=== PATIENT | female | born 2005 | race Caucasian/White ===

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

== ENCOUNTER 2024-11-18 08:02 | Emergency (ER) | payer OTHER, SELFPAY ==
[2024-11-18 08:15] VITALS: BP 147/98; PULSE 105; RESP 16; TEMP 36.5; O2SAT 100
--- NOTE | 2024-11-18 08:37 | ED.EXTPRO ---
HPI - Extremity Problem General Chief complaint: Extremity Problem,Nontraumatic Stated complaint: INJURED L LEG Time Seen by Provider: 11/18/24 08:15 Source: patient and RN notes reviewed Mode of arrival: ambulatory Limitations: no limitations History of Present Illness HPI Narrative: [id number] female presents Express Care with grade mother complaining of left calf/behind the knee pain for approximately 3 weeks. Patient says the pain is gotten a lot worse over the last 4 days. Patient says she initially was running from a snake 3 weeks ago blue she injured it when she was running. Patient says she initially had pain at the lower calf since then the pain has migrated more higher to the upper calf and behind her left knee. Patient denies any chest pain or shortness of breath, numbness, tingling, leg swelling. Patient also states she has been traveling a lot lately and driving cars for up to 16 hours at a time. Patient also takes control. Patient denies any recent surgeries or any history of blood clots. Patient has been trying [id number] pain medication without relief. Related Data Home Medications ?Medication ?Instructions ?Recorded ?Confirmed ?Last Taken ?Type drospirenone 3 mg-ethinyl tablet 11/18/24 Unknown History estradiol 0.02 mg tablet ergocalciferol (vitamin D2) 1,250 11/18/24 Unknown History mcg (50,000 unit) capsule metformin 500 mg tablet,extended mg PO 11/18/24 Unknown History release 24 hr Allergies Allergy/AdvReac Type Severity Reaction Status Date / Time No Known Allergies Allergy Verified 11/18/24 08:09 Review of Systems Review of Systems: CONSTITUTIONAL: Denies fever, chills, or sweats. EYES: Denies visual changes, redness, or discharge. ENT: Denies rhinorrhea, congestion, sore throat, or otalgia. CARDIOVASCULAR: Denies chest pain, palpitations, or edema. RESPIRATORY: Denies cough or dyspnea. GASTROINTESTINAL: Denies abdominal pain, nausea, vomiting, or diarrhea. GENITOURINARY: Denies dysuria or hematuria. SKIN: Denies rash or itching. MUSCULOSKELETAL: Denies back pain, joint pain, or myalgia. Positive for leg pain. NEUROLOGIC: Denies headache, numbness, or weakness. PSYCHIATRIC: Denies anxiety or depression. All other systems reviewed are negative, except as documented in HPI. PMFSH Comments At the time of my signature, I reviewed and agree with the nursing past medical, surgical, social, and family history. There is no relevant family history pertinent to the patient complaint. Exam Narrative: GENERAL: This is a well-nourished, well-developed adult, in no apparent distress. They are non ill-appearing, nontoxic appearing. HEAD: normocephalic, atraumatic. EYES: Sclera clear/white. Conjunctiva normal. Vision is grossly intact. Extraocular movements intact EARS: External ears normal, Hearing grossly intact. NOSE: External nose normal THROAT: Mucous membranes moist, NECK: Neck supple, CARDIOVASCULAR: Regular rate and rhythm RESPIRATORY: Respiratory rate normal, respiratory effort nonlabored, no respiratory distress SKIN: warm, Dry, intact with no suspicious lesions or rash, good texture and turgor. NEURO: awake, alert, and oriented to person, place and time. There were no obvious focal neurologic abnormalities. EXTREMITIES: Left lower extremity: Tenderness to palpation behind the left knee in the upper calf. No palpable cord. Tender through full range of motion of the knee. Capillary refill less than 2 seconds. Left Pedal pulse 2 +and palpable. Neurovascular status intact distal injury. No obvious swelling, injury, deformity, bruising, or redness. Course Course Emergency Course: Portions of this record may have been created with voice recognition software Level of Care: Express Care Visit Vital Signs Vital signs: Vital Signs Temperature 97.7 F 11/18/24 08:15 Pulse Rate 105 H 11/18/24 08:15 Respiratory Rate 16 11/18/24 08:15 Blood Pressure 147/98 H 11/18/24 08:15 Pulse Oximetry 100 11/18/24 08:15 Temperature 97.7 F 11/18/24 08:15 Pulse Rate 105 H 11/18/24 08:15 Respiratory Rate 16 11/18/24 08:15 Blood Pressure 147/98 H 11/18/24 08:15 Pulse Oximetry 100 11/18/24 08:15 Reviewed Transfer Transfered to: [facility] Transportation: Other (Private vehicle) Transfer rationale: Patient required higher level care, patient required ultrasound imaging, rule out deep vein thrombosis. Accepting physician: Dr. Navarrete MDM - Extremity (Nontraumatic) MDM Narrative Medical decision making narrative: Wells score of 1 cannot exclude DVT due to patient's recent injury, be on control, and prolonged traveling. Given patient's symptoms, it is recommend the patient seek a higher level care and proceed immediately to the emergency department. Patient is agreeable about [facility]. Called over to [facility] and spoke with Dr. Navarrete who is aware of this patient and accepted this patient for transfer. Patient advised to remain NPO and proceed immediately to the ER. Patient's grandmother will take patient via private vehicle. Differential Diagnosis Differential diagnosis: Likely other (Muscle strain, DVT, arthritis, tendinitis) Critical Care Time Critical Care Time Critical Care Time: No Discharge Plan Discharge Clinical Impression: Pain of left calf Patient Disposition: Acute Care Hospital Condition: Stable Patient Language: Syriac Prescriptions: No Action ergocalciferol (vitamin D2) 1,250 mcg (50,000 unit) capsule metformin 500 mg tablet extended release 24 hr PO drospirenone-ethinyl estradiol 3-0.02 mg tablet Eliquis DVT-PE Treat 30D Start 5 mg (74 tabs) tablets,dose pack See Rx Instructions .ROUTE .COMPLEX Qty: 74 0RF Rx Instructions: orally per package directions Follow-up/Referrals: Jennifer Stewart [employer] [Primary Care Provider] - Time of Disposition: 08:43
== END 2024-11-18 08:39 | disposition short-term general hospital (02) ==
PROVIDERS: PCP Nurse Practitioner
DX: M79.662 Pain in left lower leg (principal)
CPT/HCPCS: 99212; G0463

== ENCOUNTER 2024-11-18 09:00 | Emergency (ER) | payer OTHER, SELFPAY ==
--- NOTE | ~2024-11-18 | CT_ITS ---
Clinical Indication: DVT, tachycardia, pulmonary embolus CT Scan of the Chest with Contrast: Technique: Contiguous sections were acquired throughout the chest after intravenous administration of 100 cc of Omnipaque 350. Dose reduction technique was used on this scan by utilizing automated expos ure control and iterative reconstruction technique. The dose-length product (DLP) was 414.89 mGy-cm. Findings: There is no evidence of any significant mediastinal, hilar or axillary lymphadenopathy. There is no f illing defect in the pulmonary arterial tree to suggest pulmonary embolus. There is no evidence of ao rtic dissection or aneurysm. There is no evidence of pleural or pericardial effusion. There are peripheral pulmonary emboli and medial segmental and subsegmental branches in the left lowe r lobe. No large central pulmonary embolus. Images through the upper abdomen reveal diffuse hepatic steatosis. Impression: Small pulmonary emboli in the medial segmental and subsegmental branches in the left lower lobe. No l arge central pulmonary embolus. Diffuse hepatic steatosis. Clear lungs. Reviewed, dictated and finalized at location . Impression: Small pulmonary emboli in the medial segmental and subsegmental branches in the left lower lobe. No large central pulmonary embolus. Diffuse hepatic steatosis. Clear lungs.
--- NOTE | ~2024-11-18 | US_ITS ---
EXAMINATION:US venous doppler LE LT INDICATION:Calf pain. Recent travel. TECHNIQUE: Multiple grayscale, color flow and Doppler images of the left lower extremity deep venous systems were obtained and reviewed. COMPARISON:No prior studies for comparison. FINDINGS: There is deep venous thrombosis involving the left femoral, popliteal, posterior tibial, pe roneal veins and gastrocnemius veins IMPRESSION: 1: Extensive deep venous thrombosis of the left lower extremity veins.. Reviewed, dictated and finalized at location B.
--- NOTE | ~2024-11-18 | XR_ITS ---
Left Knee Technique: AP, lateral, and oblique views were obtained. Clinical History: Pain Findings: No fracture or dislocation is seen. Osseous alignment is anatomic. Joint spaces are preserv ed without degenerative or erosive change. Soft tissues are unremarkable. No joint effusion is seen. Impression: Unremarkable left knee radiographs. Reviewed, dictated and finalized at location . Impression: Unremarkable left knee radiographs.
[2024-11-18 09:04] VITALS: BP 155/108; PULSE 124; RESP 18; TEMP 36.8; O2SAT 100
--- NOTE | 2024-11-18 09:12 | ED.EXTPRO ---
HPI - Extremity Problem General Chief complaint: Extremity Problem,Nontraumatic Stated complaint: L LEG PAIN Time Seen by Provider: 11/18/24 09:03 Source: patient Mode of arrival: ambulatory Limitations: no limitations History of Present Illness HPI Narrative: Patient is a 19-year-old female who presents the ED with report of left calf and posterior knee pain. Patient reports having pain over the last couple weeks. States pain was initially in her left calf. Notes that she recently traveled several states away 3 weeks ago and was running from a snake on the ground in thought she may have pulled her calf muscle. She states the pain has since radiated behind her left knee. Was seen in urgent care today and referred to the ED for rule out of DVT. Patient is also on estrogen control. She denies previous history or family history of blood clots. Denies chest pain or shortness of breath. Denies numbness. Related Data Home Medications ?Medication ?Instructions ?Recorded ?Confirmed ?Last Taken ?Type drospirenone 3 mg-ethinyl tablet 11/18/24 Unknown History estradiol 0.02 mg tablet ergocalciferol (vitamin D2) 1,250 11/18/24 Unknown History mcg (50,000 unit) capsule metformin 500 mg tablet,extended mg PO 11/18/24 Unknown History release 24 hr Allergies Allergy/AdvReac Type Severity Reaction Status Date / Time No Known Allergies Allergy Verified 11/18/24 08:09 Review of Systems Review of Systems: All systems reviewed & are unremarkable except as noted in HPI. All systems reviewed & are unremarkable except as noted in HPI and below Exam Narrative: GENERAL: Well appearing, well-nourished, non-toxic, in no acute distress. HEAD: Normocephalic, atraumatic. RESPIRATORY: Airway patent, respirations nonlabored. CARDIOVASCULAR: Regular rate and rhythm. Pedal pulses are intact and easily palpable. MUSCULOSKELETAL: Moves all extremities. No gross deformities. Full range of motion of left lower extremity. No fusiform swelling of left lower extremity. Tenderness to palpation in left proximal calf popliteal region with mild fullness in this region. No warmth or erythema. SKIN: Warm, dry, normal color. NEURO: A&O X3. Speech clear. Steady gait. No ataxic movements. PSYCHIATRIC: Appropriate mood and affect. Normal interaction. Course Vital Signs Vital signs: Vital Signs Temperature 98.2 F 11/18/24 09:04 Pulse Rate 124 H 11/18/24 09:04 Respiratory Rate 18 11/18/24 09:04 Blood Pressure 155/108 H 11/18/24 09:04 Pulse Oximetry 100 11/18/24 09:04 Oxygen Delivery Room Air 11/18/24 09:04 Temperature 98.2 F 11/18/24 09:04 Pulse Rate 92 11/18/24 10:45 Respiratory Rate 13 11/18/24 10:45 Blood Pressure 120/76 11/18/24 10:45 Pulse Oximetry 99 11/18/24 10:45 Oxygen Delivery Room Air 11/18/24 09:04 MDM - Extremity (Nontraumatic) MDM Narrative Medical decision making narrative: Patient presented to ED with several week history of left calf/left knee popliteal pain. Patient initially tachycardic upon arrival, but does appear slightly anxious. Oxygen stable on room air. Sent here for rule out DVT. No previous history of DVT or history of FHx of clots. No signs of neurologic or vascular compromise on physical examination. Compartments are soft without signs of compartment syndrome. XR of left knee negative Venous Doppler ultrasound of left lower extremity is positive for extensive DVT of left lower extremity: deep venous thrombosis involving the left femoral, popliteal, posterior tibial, peroneal veins and gastrocnemius veins. Laboratory studies are otherwise unremarkable. Troponin undetectable. BNP within normal range. CTA of chest was obtained and does show small segmental and subsegmental in left lower lobe. No large or central PE. No evidence of R heart strain. Discussed lab and imaging findings extensively with patient and family. Discussed need for anticoagulation. Patient has been extremely stable throughout ED stay. Denying shortness of breath or chest pain at this time. No hypoxia. She has not required supplemental oxygen. Feel she is safe for D/C home on DOAC with very close outpatient follow-up. Given 1st dose of Eliquis in the ED. Patient and family are in agreement with this plan. Advised she will need close follow-up with her PCP for continued management and did refills of Eliquis. Discussed need for discontinuation of estrogen therapy. Patient is interested in an IUD. Discussed case with Dr. Josh Donahue obgyn consulting psychologist for Dr. Carson, advised to call office make appointment and discuss IUD options. I did discuss case with Dr. Lugo, hematology, advised no indication for coagulopathy workup at this time. Recommended follow-up in office within 2-3 months to ensure resolution of clots and proceed w/ coagulopathy w/u at that time. Patient and family are in agreement with this plan. Discussed additional blood thinner instructions/precautions. Discussed additional strict return precautions. Patient and family voiced understanding. Discharged in stable condition. Vital signs stable at time of D/C. Medical Records Attestation: I reviewed the patient's medical records. Lab Data Attestation: I reviewed the patient's lab results. 11/18/24 10:41 11/18/24 10:41 Labs: Lab Results 11/18/24 Range/Units 10:41 WBC 10.6 H (4.5-10.0) K/mm3 RBC 4.86 (4.2-5.4) M/mm3 Hgb 13.4 (12.0-15.0) g/dL Hct 40.0 (37.0-47.0) % MCV 82.3 (80-100) fl MCH 27.6 (26-34) pg MCHC 33.5 (32-36) g/dl RDW 11.9 (11.5-14.5) % Plt Count 310 (150-375) k/mm3 MPV 9.0 (7.4-10.4) fl Immature Gran % (Auto) 0.3 (0-0.5) % Neut % (Auto) 80.6 H (45.5-73.1) % Lymph % (Auto) 11.9 L (18.3-44.2) % [place] % (Auto) 4.5 (2.6-8.5) % Eos % (Auto) 2.6 (0-4.4) % Baso % (Auto) 0.1 L (0.2-1.2) % Lymph # (Auto) 1.27 (0.9-3.2) K/mm3 [place] # (Auto) 0.5 (0.1-0.6) K/mm3 Eos # (Auto) 0.3 (0-0.3) K/mm3 Baso # (Auto) 0.0 (0.0-0.1) K/mm3 Abs Immat Gran (auto) 0.03 (0.00-0.031) K/mm3 Absolute Neuts (auto) 8.6 H (1.3-6.7) K/mm3 Absolute Nucleated RBC 0.000 (0.0-0.012) K/mm3 Nucleated RBC % 0.0 (0.0-0.2) % PT 14.0 (11.1-14.7) Seconds INR 1.1 APTT 27.4 (22.3-36.8) Seconds Sodium 137 (137-145) mmol/L Potassium 4.1 (3.4-5.0) mmol/L Chloride 106 (98-107) mmol/L Carbon Dioxide 18 L (22-30) mmol/L Anion Gap 13 H (4-12) mmol/L BUN 11 (7-17) mg/dL Creatinine 0.94 (0.7-1.0) mg/dL Estim Creat Clear Calc 92 ml/min Estimated GFR > 60 (59 - ) Glucose 86 (65-110) mg/dL Calcium 9.5 (8.4-10.2) mg/dL Troponin I < 0.012 (0.000-0.034) ng/mL NT-Pro-B Natriuret Pep < 20 (19.9-100) pg/mL Imaging Data Attestation: I personally reviewed and interpreted this imaging study as follows: Radiologist's impression: ITS Impressions Knee X-Ray 11/18/24 10:22 Impression: Unremarkable left knee radiographs. Venous Doppler Study 11/18/24 10:30 IMPRESSION: 1: Extensive deep venous thrombosis of the left lower extremity veins.. Chest CTA 11/18/24 11:50 Impression: Small pulmonary emboli in the medial segmental and subsegmental branches in the left lower lobe. No large central pulmonary embolus. Diffuse hepatic steatosis. Clear lungs. Discharge Plan Discharge Clinical Impression: Acute deep vein thrombosis (DVT) of left lower extremity, Pulmonary emboli Patient Disposition: Home Condition: Stable Instructions: Antibiotic Form, Pulmonary Embolism (ED), Deep Vein Thrombosis (ED), Blood Thinners (ED), Deep Vein Thrombosis Prevention (ED) Additional Instructions: Take Eliquis as prescribed. It is important you do not miss any doses. You will need to follow-up with your primary care doctor for further evaluation and refills of this medication. It is also recommended you follow-up with Hematology for future blood workup. Call office to make appointment. DISCONTINUE YOUR ESTROGEN CONTROL. Follow up with Dr. Carson for control options. You are being started on a blood thinner. This does put you at increased risk for bleeding. Avoid use of NSAIDS (ibuprofen, Motrin, aleve, naproxen, Advil). If you ever fall or hit her head, it is recommended you be seen in an emergency department to receive imaging of your brain. Additionally, return to the ED if you experience worsening or severe chest pain, shortness of breath, severe pain or swelling of her leg, abnormal vaginal bleeding, rectal bleeding, dark black stools, persistent nosebleeds, blood in your urine, or any other symptoms of concern. Patient Language: Maltese Prescriptions: New Eliquis DVT-PE Treat 30D Start 5 mg (74 tabs) tablets,dose pack See Rx Instructions .ROUTE .COMPLEX Qty: 74 0RF Rx Instructions: orally per package directions No Action ergocalciferol (vitamin D2) 1,250 mcg (50,000 unit) capsule metformin 500 mg tablet extended release 24 hr PO drospirenone-ethinyl estradiol 3-0.02 mg tablet Follow-up/Referrals: Te Lugo MD [Physician] - (HEMATOLOGY) Jennifer Stewart NP [Primary Care Provider] - Park Carson MD [Physician] - (OBGYN) Time of Disposition: 13:03
[2024-11-18 10:45] VITALS: BP 120/76; PULSE 92; RESP 13; O2SAT 99
[2024-11-18 10:47] LABS: Hematocrit 40.0 % (37.0-47.0); Hemoglobin 13.4 g/dL (12.0-15.0); Immature Granulocyte Percent A 0.3 % (0-0.5); Lymphocytes Absolute Auto 1.27 K/mm3 (0.9-3.2); Mean Corpuscular HGB Conc 33.5 g/dl (32-36); Mean Corpuscular Hemoglobin 27.6 pg (26-34); Mean Corpuscular Volume 82.3 fl (80-100); Nucleated Red Blood Cells Absolute Auto 0.000 K/mm3 (0.0-0.012); Nucleated Red Blood Cells Perc 0.0 % (0.0-0.2); Platelet Count Result 310 k/mm3 (150-375); Red Blood Count 4.86 M/mm3 (4.2-5.4); White Blood Count 10.6 K/mm3 (4.5-10.0)
[2024-11-18 11:00] LABS: INR 1.1; Prothrombin Time 14.0 Seconds (11.1-14.7)
[2024-11-18 11:01] LABS: Partial Thromboplastin Time 27.4 Seconds (22.3-36.8)
[2024-11-18 11:12] LABS: Anion Gap 13 mmol/L (4-12); Blood Urea Nitrogen 11 mg/dL (7-17); Calcium 9.5 mg/dL (8.4-10.2); Carbon Dioxide 18 mmol/L (22-30); Chloride 106 mmol/L (98-107); Estimated CRCL calculation 92 ml/min; Estimated Glomerular Filt Rate > 60; Glucose 86 mg/dL (65-110); Potassium 4.1 mmol/L (3.4-5.0); Sodium 137 mmol/L (137-145)
[2024-11-18 11:22] LABS: NT Pro B Type Natriuretic Pept < 20 pg/mL (19.9-100); Troponin I < 0.012 ng/mL (0.000-0.034)
[2024-11-18] MEDS: APIXABAN 5 MG TABLET 10 MG PO (12:53)
== END 2024-11-18 13:17 | disposition home or self-care (01) ==
PROVIDERS: Emergency Provider Physician Assistant; PCP Nurse Practitioner
DX: I82.432 Acute embolism and thrombosis of left popliteal vein (principal); I82.412 Acute embolism and thrombosis of left femoral vein; I82.442 Acute embolism and thrombosis of left tibial vein; I82.462 Acute embolism and thrombosis of left calf muscular vein; I82.452 Acute embolism and thrombosis of left peroneal vein; I26.99 Other pulmonary embolism without acute cor pulmonale
CPT/HCPCS: 36415; 71275; 73564; 80048; 83880; 84484; 85025; 85610; 85730; 93971; 99284; A9270; Q9967

== ENCOUNTER 2025-03-30 07:46 | Outpatient (CLI) | payer OTHER, SELFPAY ==
--- OUTSIDE RECORDS SUMMARY | 2025-03-29 10:30 | XMS_ITS | Encounter Summary ---
Author Organization [facility] TONY Reed [facility] Address [address] [place] [address] Care Team Providers Care Food Checker Name Role Phone Unavailable Primary Care Provider Unavailabl e Reason for Referral * Radiology Services (Urgent) - Open Specialty Diagnoses / Procedures Referred By Ashlee t Referred To Contact Diagnoses Acute deep vein thrombosis (DVT) of proximal vein of left lower extremity (CMS/HCC) Procedures US VENOUS DOPPLER LEG LEFT Te Lugo MD [address] [place] [id number] Phone: tel: fax: Referral ID Status Reason Start Date Expiration Date Visits Re quested Visits Authorized [id number] Open 03/29/2025 04/29/2026 1 1 O VISUAL EQUIPMENT RENTAL CLERK Reason for Visit * Reason Comments Establish Care Encounter Details Date Type Department Care Team (Late st Contact Info) Description 03/29/2025 10:30 AM AUDIO VISUAL EQUIPMENT RENTAL CLERK Office Visit [facility] Oncology and Hematology - [place] [address] [place] [address] [address] [place] [address] Te Lugo MD [address] [place] [address] Acute deep vein thrombosis (DVT) of proximal vein of left lower extremity (CMS/HCC) (Primary Dx) Social History Tobacco Use Types Packs/Day Years Used Date Smoking Tobacco: Never Smokeless Tobacco: Never Alcohol Use Standard Drinks/Week Comments Never 0 (1 standard drink = 0.6 oz pur e alcohol) Comments Unknown Sex and Gender Information Value Date Recorded Sex Assigned at Not on file Legal Sex Female 4:26 PM CDT Gender Identity Not on file Sexual Orientation Not on file documented as of this encounter Last Filed Vital Signs Vital Sign Reading Time Taken Comments Blood Pressure 132/81 03/29/2025 10:18 AM AUDIO VISUAL EQUIPMENT RENTAL CLERK Pulse 87 03/29/2025 10:18 AM AUDIO VISUAL EQUIPMENT RENTAL CLERK Temperature 36.6 C (97.8 F) 03/29/2025 10:18 AM AUDIO VISUAL EQUIPMENT RENTAL CLERK Respiratory Rate 15 03/29/2025 10:1 8 AM AUDIO VISUAL EQUIPMENT RENTAL CLERK Oxygen Saturation 98% 03/29/2025 10: 18 AM AUDIO VISUAL EQUIPMENT RENTAL CLERK Inhaled Oxygen Concentration - - Weight 97.4 kg (214 lb 12.8 oz) 025 10:18 AM AUDIO VISUAL EQUIPMENT RENTAL CLERK Height 167.6 cm (5' 6) 03/29/2025 10:1 8 AM AUDIO VISUAL EQUIPMENT RENTAL CLERK Body Mass Index 34.67 03/29/2025 10:18 AM AUDIO VISUAL EQUIPMENT RENTAL CLERK documented in this encounter Progress Notes * Te Lugo MD - 03/29/2025 11:02 AM CST Hematology-oncology consult Note Requesting Physician Primary Care Physician No primary care provider on file. Problem list There is no problem list on file for this patient. Previous TREATMENT ? Measurable Disease ? Reason for Visit Brigitte Garland is a 19 y.o. female who was referred for consultation for hypercoagulable state. History of present illness This is a pleasant 19-year-old female who has been in good health except history of polycystic ovarian syndrome and has been on metformin developed provoked left lower extremity DVT after 9days of occasion when she drove almost 63 hours while on the control pills. Patient had left lower extremity Doppler studies done when she presented with pain in the left leg on November 18, 2024 showed extensive DVT of the left lower extremity. CTA chest on November 18 showed small pulmonary embolism in the medial segmental and subsegmental branches of the left lower lobe with diffuse hepatic steatosis. She has no previous history of thromboembolic events. Patient father had blood clot while he was on testosterone. She was started on Eliquis with improvement in the left leg pain within a week.She is still taking Eliquis. Denies any other new complaints. control pill has been discontinued at the time of diagnosis of blood clot. Past Medical History Past Medical History: Diagnosis Date Hyperlipidemia Vascular disease PCOS Surgical History No past surgical history on file. Medications Current Outpatient Medications Medication Sig Dispense Refill metFORMIN (GLUCOPHAGE XR) 500 mg Extended Release 24 hour tablet Take 2 Tablets by mouth 2 times daily. Eliquis 5 mg tablet Take 5 mg by mouth 2 times daily. No current facility-administered medications for this visit. Allergies No Known Allergies Immunizations: There is no immunization history on file for this patient. Family History Family History Problem Relation Name Age of Onset No Known Problems Father No Known Problems Mother No Known Problems Brother Social History Social History Tobacco Use Smoking status: Never Smokeless tobacco: Never Substance Use Topics Alcohol use: Never Review of Systems Constitutional: Patient did not mention fever; no night sweats; no anorexia; no weight loss; no fatique NEENT: Patient did not mention headache; no change in vision; no change in hearing; no sore throat;no dysphagia Respiratory: Patient did not mention shortness of breath; no pleuritic chest pain; no cough; no hemoptysis Cardiac: Patient did not mention cardiac-like chest pain; no palpitations; no orthopnea; no PND; noDOE Breasts: Patient did not mention tenderness; no masses GI: Patient did not mention abdominal pain; no nausea; no vomiting; no diarrhea; no hematochezia; no melena : Patient did not mention dysuria; no frequency; no hesitancy; no hematuria BASKET WEAVER: Musculosketetal: Patient did not mention bone pain; no arthralgia; no joint swelling; no myalgia; Skin: Patient did not mention pruritis; no rash; no petechiae; no ecchymoses Endocrine: Patient did not mention polydipsia; no polyuria; no unusual weight gain Neuro: Patient did not mention headache; no change in vision; no sensory changes; no muscle weakness; no confusion; no seizures Psych: Patient did not mention anxiety; no depression; Physical Exam Vitals: As per nursing note Constitutional: Well developed, well nourished, no acute distress, non-toxic appearance Teeth and gum. No signs of infection or swelling. Eyes: PERRL, conjunctiva normal HEENT: Atraumatic, external ears normal, nose normal, oropharynx moist, no pharyngeal exudates. no sinus tenderness Neck- normal range of motion, no tenderness, supple Cardiovascular: Normal rate, normal rhythm, no murmurs, no gallops, no rubs GI: Soft, nondistended, normal bowel sounds, nontender, no splenomegaly, no hepatomegaly, no mass, no rebound, no guarding : No costovertebral angle tenderness Musculoskeletal: No edema, no tenderness, no deformities. Back- no tenderness Integument: Well hydrated, no rash, Digits and nails inspection normal Lymphatic: No lymphadenopathy noted Neurologic: Alert & oriented x 3, CN 2-12 normal, normal motor function, normal sensory function, no focal deficits noted Psychiatric: Speech and behavior appropriate ? labs No results found for this or any previous visit (from the past 24 hours). Pathology ? Imaging & Other Studies Performance Status? Assessment / Plan: ? Provoked left lower extremity DVT and PE. Patient is a pleasant 19-year-old slightly obese female with history of polycystic ovarian syndrome presented with left lower extremity pain after 9 days of vacation when she drove almost 63 hours while on the control pills. Left lower extremity Doppler studies done on November 18 showed extensive DVT of the left lower extremity and CTA chest showed small pulmonary embolism in the medial segmental and subsegmental branches of the left lower lobe. She was started on Eliquis with resolution of the left leg pain. There is a family history of thrombosis in the father when he was on testosterone replacement therapy. I have discussed differential diagnosis of thromboembolic events. At this time I will order the left lower extremity Doppler studies and based on the results we will decide about performing hypercoagulable workup. I will discuss Doppler studies with her in 1 week. I have answered all the question to patient and the mother satisfaction. PCOS. Patient is on metformin. Thank you very much for allowing me to participate in Brigitte Gill's evaluation and management. Please feel free to contact if I can be of any further assistance in your patient???s care requiring hematology or oncology evaluation. Sincerely, ? ? Te Lugo M.D. cell TOBACCO COUNSELING She is not a tobacco/nicotine user. Te Lugo MD ,03/29/2025 11:02 AM ? Total time spent 60 minutes, two third of the total time spent counseling patient [id number]. CC:? O VISUAL EQUIPMENT RENTAL CLERK documented in this encounter Plan of Treatment Upcoming Encounters Date Type Department Care Team (Late st Contact Info) Description 04/05/2025 4:30 PM AUDIO VISUAL EQUIPMENT RENTAL CLERK Telephone Check Up [facility] Oncology and Hematology - [place] [address] [facility] [address] [place] [address] Te Lugo MD [address] [facility] [address] [place] [address] Scheduled Orders Name Type Priority Associated Diagnoses Orde r Schedule US VENOUS DOPPLER LEG LEFT Imaging Stat Acute deep vein thrombosis (DVT) of proximal vein of left lower extremity (CMS/HCC) Expected: 03/29/2025, Expires: 03/29/2026 documented as of this encounter Visit Diagnoses Diagnosis Acute deep vein thrombosis (DVT) of proximal vein of left lower extremity (CMS/HCC)- Primary documented in this encounter
--- NOTE | ~2025-03-30 | US_ITS ---
EXAMINATION: US venous doppler LE , 03/30/2025 8:06 SURGICAL PATHOLOGIST HISTORY: DVT Comparison: None Technique: Bush-scale and color Doppler images were attempted of the lower saphenofemoral junction, common femoral vein,superficial femoral vein, proximal deep femoral vein, proximal deep femoral vein, popliteal vein and posterior tibial veins. Findings: Deep Venous System:There is thrombus with diminished flow in the left popliteal vein which appears chronic in appearance, the remaining visualized deep venous system is unremarkable. Superficial Venous SystemNo superficial thrombophlebitis. Soft tissues: Soft tissues are unremarkable. Impression: Sequelae of previous DVT in the popliteal vein. Reviewed, dictated and finalized at location P. ICAL PATHOLOGIST Impression: Sequelae of previous DVT in the popliteal vein.
--- OUTSIDE RECORDS SUMMARY | 2025-03-30 07:51 | XMS_ITS | Clinical Summary ---
Author Organization [facility] Gabriele alex Nadia Address [address] [place] [address] Care Team Providers Care Field Service Rep Name Role Phone Unavailable Primary Care Provider Unavailabl e Allergies No known active allergies Medications metFORMIN (GLUCOPHAGE XR) 500 mg Extended Release 24 hour tablet Take 2 Tablets by mouth 2 times daily. 12/22/2024 Active Eliquis 5 mg tablet Take 5 mg by mouth 2 times daily. 01/11/2025 Active Active Problems No known active problems Encounters Date Type Department Care Team Description 03/29/2025 10:30 AM SHUTTLECOCK ASSEMBLER Office Visit [facility] Oncology and Hematology - [place] [address] [place] [address] Te Lugo MD Acute deep vein thrombosis (DVT) of proximal vein of left lower extremity (CMS/HCC) (Primary Dx) from Last 3 Months Family History Medical History Relation Name Comments No Known Problems Brother No Known Problems Father No Known Problems Mother Relation Name Status Comments Brother Alive Father Alive Mother Alive Social History Tobacco Use Types Packs/Day Years Used Date Smoking Tobacco: Never Smokeless Tobacco: Never Alcohol Use Standard Drinks/Week Comments Never 0 (1 standard drink = 0.6 oz pur e alcohol) Comments Unknown Sex and Gender Information Value Date Recorded Sex Assigned at Not on file Legal Sex Female 4:26 PM CDT Gender Identity Not on file Sexual Orientation Not on file Last Filed Vital Signs Vital Sign Reading Time Taken Comments Blood Pressure 132/81 03/29/2025 10:18 AM SHUTTLECOCK ASSEMBLER Pulse 87 03/29/2025 10:18 AM SHUTTLECOCK ASSEMBLER Temperature 36.6 C (97.8 F) 03/29/2025 10:18 AM SHUTTLECOCK ASSEMBLER Respiratory Rate 15 03/29/2025 10:1 8 AM SHUTTLECOCK ASSEMBLER Oxygen Saturation 98% 03/29/2025 10: 18 AM SHUTTLECOCK ASSEMBLER Inhaled Oxygen Concentration - - Weight 97.4 kg (214 lb 12.8 oz) 025 10:18 AM SHUTTLECOCK ASSEMBLER Height 167.6 cm (5' 6) 03/29/2025 10:1 8 AM SHUTTLECOCK ASSEMBLER Body Mass Index 34.67 03/29/2025 10:18 AM SHUTTLECOCK ASSEMBLER Plan of Treatment Upcoming Encounters Date Type Department Care Team (Late st Contact Info) Description 04/05/2025 4:30 PM SHUTTLECOCK ASSEMBLER Telephone Check Up [facility] Oncology and Hematology - [place] [address] [facility] [address] [place] [address] Te Lugo MD [address] [facility] [address] [place] [address] Health Maintenance Due Date Last Done Comments CHLAMYDIA SCREENING (ANNUAL) 11-24 YEARS 2015 HPV VACCINES (1 - 3-dose series) 2019 DTAP/TDAP/TD VACCINES (1 - Tdap) 2023 HEPATITIS B VACCINES (1 of 3 - 19+ 3-dose series) 04/05 INFLUENZA VACCINE (#1) 2024 Insurance
== END 2025-03-30 07:47 | disposition home or self-care (01) ==
PROVIDERS: PCP Nurse Practitioner; Visit Provider Internal Medicine Hematology & Oncology
DX: I82.432 Acute embolism and thrombosis of left popliteal vein (principal)
CPT/HCPCS: 93971